=== PATIENT | male | born 1965 | race Caucasian/White ===

== ENCOUNTER 2016-11-25 09:08 | Emergency (ER) | payer SELFPAY ==
[2016-11-25 10:27] LABS: ABSOLUTE NEUTROPHIL COUNT 6.6 K/mm3 (1.8-7.7); BASO # 0.1 K/mm3 (0.0-0.2); BASO % 1.3 % (0.2-1.0); EOS # 0.2 (0.0-0.5); EOS % 2.3 % (0.9-2.9); HEMATOCRIT 45.9 % (32.0-52.0); HEMOGLOBIN 16.2 gm/l (14.0-18.0); IMM NEUT% 0.3 % (0-1); LYMPH # 1.9 (1.0-4.8); LYMPH % 19.4 % (15-45); MEAN CELL VOLUME 97.5 fl (80.0-94.0); MEAN CORPUSCULAR HEMOGLOBIN 34.4 pg (27.0-31.0); MEAN CORPUSCULAR HGB CONC 35.3 g/dl (33.0-37.0); MEAN PLATELET VOLUME 8.9 fl (7.4-10.4); MONO # 0.7 (0.0-0.8); MONO % 7.8 % (4-12); NEUT % 68.9 % (43-75); PLATELET COUNT 176 K/mm3 (130-400); RED CELL DISTRIBUTION WIDTH 12.5 % (11.5-14.5)
[2016-11-25 10:41] LABS: ALB/GLOB RATIO 1.3 (>1.0); ALBUMIN 3.8 gm/dL (3.5-5.7); CALCIUM 8.7 mg/dL (8.6-10.3)
--- NOTE | 2016-11-25 10:48 | RAD ---
History: Dyspnea on exertion with weakness and flulike symptoms. Comparison: 02/12/2013. Technique: 2 views Findings: The soft tissue and bony structures are unremarkable. The heart size is appropriate. No infiltrate, effusion or pneumothorax is observed. The hilar and mediastinal structures are normal. Impression: 1. A negative 2 view chest
== END 2016-11-25 11:10 | disposition home or self-care (01) ==
LOC: ED 09:08
DX: R53.81 Other malaise (principal); R79.89 Other specified abnormal findings of blood chemistry; R53.83 Other fatigue; R06.02 Shortness of breath; F17.210 Nicotine dependence, cigarettes, uncomplicated